=== PATIENT | female | born 1985 ===

== ENCOUNTER 2021-08-13 16:09 | Outpatient (REF) | payer BC, SELFPAY ==
[2021-08-15 15:05] LABS: COVID-19 RT-PCR UVMMC Result Negative (Negative)
== END 2021-08-13 16:10 | disposition home or self-care (01) ==
LOC: LBN 16:09
PROVIDERS: Visit Provider Family Medicine
DX: Z20.822 Contact with and (suspected) exposure to COVID-19 (principal); J06.9 Acute upper respiratory infection, unspecified
CPT/HCPCS: U0003